=== PATIENT | male | born 1950 | race African-American/Black ===

== ENCOUNTER 2017-11-06 02:04 | Inpatient (IN) ==
[2017-11-06] MEDS ORDERED: SODIUM CHLORIDE 0.9% 1,000 ML IV STA (03:38)
[2017-11-06 04:29] LABS: Basophils % 0.2 % (0.0-0.8); Eosinophils # 0.5 10*3/uL (0.0-0.87); Eosinophils % 10.4 % (0.00-10.9); Hematocrit 32.7 VOL% (42.0-52.0); Hemoglobin 10.4 GM/DL (14.0-18.0); Lymphocytes # 1.6 10*3/uL (1.4-4.0); Lymphocytes % 34.6 % (21.2-54.2); Mean Corpuscular HGB Conc 31.8 GM/DL (32-36); Mean Corpuscular Hemoglobin 26 PG (27-34); Mean Corpuscular Volume 81.5 FL (87-102); Mean Platelet Volume 11.3 FL (9.6-12.0); Monocytes # 0.7 10*3/uL (0.11-0.8); Neutrophils # 1.8 10*3/uL (1.4-7.4); Neutrophils % 39.8 % (38.7-73.9); Platelet Count 154 T/CUMM (130-400); Red Blood Count 4.01 MC/CUMM (3.8-5.5); Red Cell Distribution Width 12.5 % (9.3-17.3); White Blood Count 4.6 T/CUMM (4-12)
[2017-11-06 04:49] LABS: Albumin 3.5 G/DL (3.4-5.0); Bilirubin,Total 1.8 MG/DL (0.2-1.0); Calcium 10.9 MG/DL (8.5-10.1); Osmolality,Calculated 282.1 MOS/KG (273-304); Potassium 3.6 MMOL/L (3.5-5.1); Total Protein 6.7 G/DL (6.4-8.3)
[2017-11-06] MEDS ORDERED: MAGNESIUM HYDROXIDE SUSP 30 ML UDCUP PO PRN (05:09)
[2017-11-06] MEDS ORDERED: chlorproMAZINE INJ 50 MG in SODIUM CHLORIDE 0.9% 100 ML IV PRN (05:09)
[2017-11-06] MEDS ORDERED: chlorproMAZINE 25 MG TABLET PO PRN (05:09)
[2017-11-06] MEDS ORDERED: PROMETHAZINE INJ 25 MG in SODIUM CHLORIDE 0.9% 50 ML IV PRN (05:09)
[2017-11-06] MEDS ORDERED: chlorproMAZINE INJ 25 MG in SODIUM CHLORIDE 0.9% 100 ML IV PRN (05:09)
[2017-11-06] MEDS ORDERED: ALUMINUM/MAGNES/SIMETH MAX STR 30 ML UDCUP PO PRN (05:09)
[2017-11-06] MEDS ORDERED: TEMAZEPAM 7.5 MG CAPSULE PO PRN (05:09)
[2017-11-06] MEDS ORDERED: ALPRAZolam 0.25 MG TABLET PO PRN (05:09)
[2017-11-06] MEDS ORDERED: MYLANTA/LIDO VISC 2:1 300 ML BOTTLE SWISH/SPIT PRN (05:09)
[2017-11-06] MEDS ORDERED: diphenhydrAMINE CAP 25 MG CAPSULE PO PRN (05:09)
[2017-11-06] MEDS ORDERED: MYLANTA/LIDO VISC 2:1 300 ML BOTTLE SWISH/SWAL PRN (05:09)
[2017-11-06] MEDS ORDERED: BENZTROPINE 2 MG/2 ML AMP IV PRN (05:09)
[2017-11-06] MEDS ORDERED: LACTULOSE 20 GM/30 ML UDCUP PO PRN (05:09)
[2017-11-06] MEDS ORDERED: ACETAMINOPHEN 325 MG TABLET PO PRN (05:09)
[2017-11-06] MEDS ORDERED: traMADol 50 MG TABLET PO PRN ×2 (05:09→08:09)
[2017-11-06] MEDS ORDERED: LOPERAMIDE 2 MG CAPSULE PO PRN ×2 (05:09)
[2017-11-06] MEDS ORDERED: guaiFENesin 200 MG/10 ML UDCUP PO PRN (05:09)
[2017-11-06] MEDS ORDERED: DEXTROSE 5% NACL 0.9% 1,000 ML IV SCH (05:30)
[2017-11-06] MEDS ORDERED: LORazepam 1 MG TABLET PO PRN (08:09)
[2017-11-06] MEDS ORDERED: PALONOSETRON 0.25 MG/5 ML VIAL IV ONE (08:30)
[2017-11-06] MEDS ORDERED: DEXAMETHASONE 10 MG/1 ML VIAL IV ONE (08:30)
[2017-11-06] MEDS ORDERED: FLUOROURACIL 800 MG in SYRINGE 1 EACH IV ONE (09:30)
[2017-11-06] MEDS ORDERED: OXALIPLATIN 170 MG in DEXTROSE 5% 250 ML IV ONE (09:30)
[2017-11-06] MEDS ORDERED: LEUCOVORIN INJ 700 MG, LEUCOVORIN INJ 100 MG in DEXTROSE 5% 250 ML IV ONE (09:30)
[2017-11-06] MEDS: LOSARTAN/HCTZ 50-12.5 MG TABLET PO SCH (10:14)
[2017-11-06] MEDS: SODIUM CHLORIDE 0.9% IV SCH (16:19)
[2017-11-06] MEDS: FLUOROURACIL IV SCH (16:19)
[2017-11-07] MEDS: ONDANSETRON 4 MG/2 ML VIAL IV PRN ×2 (01:19→14:47)
[2017-11-07] MEDS: LOSARTAN/HCTZ 50-12.5 MG TABLET PO SCH (10:15)
[2017-11-07] MEDS: FLUOROURACIL IV SCH (14:48)
[2017-11-07] MEDS: SODIUM CHLORIDE 0.9% IV SCH (14:48)
[2017-11-08 06:39] LABS: Basophils % 0.2 % (0.0-0.8); Eosinophils # 0.2 10*3/uL (0.0-0.87); Eosinophils % 4.8 % (0.00-10.9); Hematocrit 28.6 VOL% (42.0-52.0); Hemoglobin 9.5 GM/DL (14.0-18.0); Immature Granulocytes % 0.5 %; Immature Granulocytes Absolute 0.02 #; Lymphocytes # 1.1 10*3/uL (1.4-4.0); Mean Corpuscular HGB Conc 33.2 GM/DL (32-36); Mean Corpuscular Hemoglobin 27 PG (27-34); Mean Corpuscular Volume 79.7 FL (87-102); Mean Platelet Volume 12.1 FL (9.6-12.0); Monocytes # 0.5 10*3/uL (0.11-0.8); Monocytes % 12.7 % (1.7-12.7); Neutrophils # 2.3 10*3/uL (1.4-7.4); Neutrophils % 54.8 % (38.7-73.9); Platelet Count 135 T/CUMM (130-400); Red Blood Count 3.59 MC/CUMM (3.8-5.5); Red Cell Distribution Width 12.7 % (9.3-17.3); White Blood Count 4.2 T/CUMM (4-12)
[2017-11-08] MEDS: LOSARTAN/HCTZ 50-12.5 MG TABLET PO SCH (10:15)
[2017-11-08 14:05] VITALS: BP 113/72
[2017-11-09] MEDS ORDERED: PEGFILGRASTIM 6 MG/0.6 ML SYRINGE SUBCUT ONE (08:03)
[2017-11-10] MEDS ORDERED: BEVACIZUMAB IV ONE (09:00)
[2017-11-10] MEDS ORDERED: SODIUM CHLORIDE 0.9% IV ONE (09:00)
== END 2017-11-08 13:15 | disposition home or self-care (01) | DRG 847 ==
LOC: N.ED 02:04 → N.EDINP 05:09 → N.4E 05:52
PROVIDERS: ADMIT Specialist; ATTEND Specialist

== ENCOUNTER 2017-11-20 07:00 | Inpatient (IN) ==
[2017-11-20 10:53] LABS: Eosinophils # 0.3 10*3/uL (0.0-0.87); Eosinophils % 5.5 % (0.00-10.9); Hematocrit 33.6 VOL% (42.0-52.0); Hemoglobin 10.6 GM/DL (14.0-18.0); Immature Granulocytes % 0.4 %; Immature Granulocytes Absolute 0.02 #; Lymphocytes # 1.5 10*3/uL (1.4-4.0); Lymphocytes % 31.2 % (21.2-54.2); Mean Corpuscular HGB Conc 31.5 GM/DL (32-36); Mean Corpuscular Hemoglobin 26 PG (27-34); Mean Corpuscular Volume 82.2 FL (87-102); Mean Platelet Volume 10.9 FL (9.6-12.0); Monocytes # 0.8 10*3/uL (0.11-0.8); Neutrophils # 2.3 10*3/uL (1.4-7.4); Neutrophils % 45.9 % (38.7-73.9); Platelet Count 144 T/CUMM (130-400); Red Blood Count 4.09 MC/CUMM (3.8-5.5); Red Cell Distribution Width 13.6 % (9.3-17.3); White Blood Count 4.9 T/CUMM (4-12)
[2017-11-20] MEDS ORDERED: FLUOROURACIL 800 MG in SYRINGE 1 EACH IV ONE (11:00)
[2017-11-20] MEDS ORDERED: LEUCOVORIN INJ 800 MG in DEXTROSE 5% 250 ML IV ONE (11:00)
[2017-11-20] MEDS ORDERED: DEXAMETHASONE 10 MG/1 ML VIAL IV SCH (11:00)
[2017-11-20] MEDS ORDERED: OXALIPLATIN 170 MG in DEXTROSE 5% 250 ML IV ONE (11:00)
[2017-11-20] MEDS ORDERED: PALONOSETRON 0.25 MG/5 ML VIAL IV SCH (11:00)
[2017-11-20 11:13] LABS: Eosinophils 4 % (0-10); Hypochromasia 1+; Lymphocytes 28 % (20-55); Microcytosis 1+; Segmented Neutrophils 56 % (50-85); Total Cells Counted 100
[2017-11-20 11:14] LABS: Acanthocytes Few; Ovalocytes Slight; Platelet Estimate Adequate
[2017-11-20 11:54] LABS: Albumin 3.1 G/DL (3.4-5.0); Bilirubin,Total 0.8 MG/DL (0.2-1.0); Calcium 10.2 MG/DL (8.5-10.1); Osmolality,Calculated 277.5 MOS/KG (273-304); Potassium 3.8 MMOL/L (3.5-5.1); Total Protein 7.3 G/DL (6.4-8.3)
[2017-11-20] MEDS ORDERED: LEUCOVORIN INJ 700 MG, LEUCOVORIN INJ 100 MG in DEXTROSE 5% 250 ML IV ONE (12:00)
[2017-11-20] MEDS ORDERED: PALONOSETRON 0.25 MG/5 ML VIAL IV ONE (12:00)
[2017-11-20] MEDS ORDERED: DEXAMETHASONE 10 MG/1 ML VIAL IV ONE (12:00)
[2017-11-20] MEDS ORDERED: NAPROXEN 250 MG TABLET PO PRN (14:52)
[2017-11-20] MEDS ORDERED: PROMETHAZINE 25 MG TABLET PO PRN (14:52)
[2017-11-20] MEDS ORDERED: traMADol 50 MG TABLET PO PRN (14:52)
[2017-11-20] MEDS ORDERED: LORazepam 1 MG TABLET PO PRN (14:52)
[2017-11-20] MEDS ORDERED: guaiFENesin 200 MG/10 ML UDCUP PO PRN (14:53)
[2017-11-20] MEDS ORDERED: LOPERAMIDE 2 MG CAPSULE PO PRN ×2 (14:53)
[2017-11-20] MEDS ORDERED: diphenhydrAMINE CAP 25 MG CAPSULE PO PRN (14:53)
[2017-11-20] MEDS ORDERED: ONDANSETRON 4 MG/2 ML VIAL IV PRN (14:53)
[2017-11-20] MEDS ORDERED: LACTULOSE 20 GM/30 ML UDCUP PO PRN (14:53)
[2017-11-20] MEDS ORDERED: PROMETHAZINE INJ 25 MG in SODIUM CHLORIDE 0.9% 50 ML IV PRN (14:53)
[2017-11-20] MEDS ORDERED: MYLANTA/LIDO VISC 2:1 300 ML BOTTLE SWISH/SWAL PRN (14:53)
[2017-11-20] MEDS ORDERED: ALPRAZolam 0.25 MG TABLET PO PRN (14:53)
[2017-11-20] MEDS ORDERED: chlorproMAZINE 25 MG TABLET PO PRN (14:53)
[2017-11-20] MEDS ORDERED: chlorproMAZINE INJ 50 MG in SODIUM CHLORIDE 0.9% 100 ML IV PRN (14:53)
[2017-11-20] MEDS ORDERED: ALUMINUM/MAGNES/SIMETH MAX STR 30 ML UDCUP PO PRN (14:53)
[2017-11-20] MEDS ORDERED: MYLANTA/LIDO VISC 2:1 300 ML BOTTLE SWISH/SPIT PRN (14:53)
[2017-11-20] MEDS ORDERED: BENZTROPINE 2 MG/2 ML AMP IV PRN (14:53)
[2017-11-20] MEDS ORDERED: MAGNESIUM HYDROXIDE SUSP 30 ML UDCUP PO PRN (14:53)
[2017-11-20] MEDS ORDERED: chlorproMAZINE INJ 25 MG in SODIUM CHLORIDE 0.9% 100 ML IV PRN (14:53)
[2017-11-20] MEDS ORDERED: ACETAMINOPHEN 325 MG TABLET PO PRN (14:53)
[2017-11-20] MEDS ORDERED: TEMAZEPAM 7.5 MG CAPSULE PO PRN (14:53)
[2017-11-20] MEDS: FLUOROURACIL IV SCH (15:28)
[2017-11-20] MEDS: SODIUM CHLORIDE 0.9% IV SCH (15:28)
[2017-11-20 16:43] LABS: Apearance,Urine CLEAR (Clear); Bilirubin,Urine Negative (Negative); Blood, Urine Negative (Negative); Glucose,Urine (UA) Negative (Negative); Ketones,Urine Negative (Negative); Mucus,Urine Occasional /LPF (Occasional); Nitrite,Urine Negative (Negative); Protein,Urine Negative; RBC,Urine <1 /HPF (0-4); Renal Epithelial Cells,Urine Occasional /HPF (<1); Squamous Epithelial Cell,Urine Occasional /HPF (0-10); Urine Color Straw (Yellow); Urine Specific Gravity 1.006 (1.001-1.035); Urine Urobilinogen < 2.0 EU/DL (0.2-1.0); WBC,Urine <1 /HPF (0-6)
[2017-11-21] MEDS: LOSARTAN/HCTZ 50-12.5 MG TABLET PO SCH (09:38)
[2017-11-21] MEDS: SODIUM CHLORIDE 0.9% IV SCH (13:43)
[2017-11-21] MEDS: FLUOROURACIL IV SCH (13:43)
[2017-11-22] MEDS: LOSARTAN/HCTZ 50-12.5 MG TABLET PO SCH (08:40)
[2017-11-22] MEDS ORDERED: HEPARIN LOCK FLUSH 500 UNIT/5 ML SYRINGE IV ONE ×2 (12:11→12:21)
[2017-11-22 12:29] VITALS: BP 146/82
== END 2017-11-22 11:42 | disposition home or self-care, planned readmission (81) | DRG 847 ==
LOC: N.4E 09:32
PROVIDERS: ADMIT Specialist; ATTEND Specialist

== ENCOUNTER 2017-11-23 13:04 | Observation (INO) ==
[2017-11-23] MEDS ORDERED: NITROGLYCERIN 2% OINT 1 INCH/GM PACK TOP STA (13:17)
[2017-11-23] MEDS ORDERED: ONDANSETRON 4 MG/2 ML VIAL IV STA (13:17)
[2017-11-23] MEDS ORDERED: ASPIRIN 325 MG TABLET PO STA (13:17)
[2017-11-23] MEDS ORDERED: SODIUM CHLORIDE 0.9% 500 ML IV STA (13:17)
[2017-11-23] MEDS ORDERED: MORPHINE 2 MG/1 ML SYRINGE IV STA (13:17)
[2017-11-23] MEDS ORDERED: ONDANSETRON 4 MG/2 ML VIAL ONE (13:25)
[2017-11-23] MEDS ORDERED: MORPHINE 2 MG/1 ML SYRINGE ONE (13:25)
[2017-11-23] MEDS ORDERED: NITROGLYCERIN 2% OINT 1 INCH/GM PACK TOP ONE (13:25)
[2017-11-23] MEDS ORDERED: ASPIRIN 325 MG TABLET ONE (13:25)
[2017-11-23 13:35] LABS: Eosinophils # 0.1 10*3/uL (0.0-0.87); Eosinophils % 3.1 % (0.00-10.9); Hematocrit 35.1 VOL% (42.0-52.0); Hemoglobin 11.7 GM/DL (14.0-18.0); Immature Granulocytes % 0.4 %; Immature Granulocytes Absolute 0.01 #; Lymphocytes # 0.8 10*3/uL (1.4-4.0); Lymphocytes % 29.9 % (21.2-54.2); Mean Corpuscular HGB Conc 33.3 GM/DL (32-36); Mean Corpuscular Hemoglobin 27 PG (27-34); Mean Corpuscular Volume 79.8 FL (87-102); Mean Platelet Volume 11.1 FL (9.6-12.0); Monocytes # 0.2 10*3/uL (0.11-0.8); Monocytes % 9.2 % (1.7-12.7); Neutrophils # 1.5 10*3/uL (1.4-7.4); Neutrophils % 57.4 % (38.7-73.9); Platelet Count 183 T/CUMM (130-400); Red Cell Distribution Width 13.4 % (9.3-17.3); White Blood Count 2.6 T/CUMM (4-12)
[2017-11-23 14:05] LABS: Albumin 3.4 G/DL (3.4-5.0); Calcium 9.7 MG/DL (8.5-10.1); Osmolality,Calculated 279.4 MOS/KG (273-304); Potassium 3.6 MMOL/L (3.5-5.1); Total Protein 7.3 G/DL (6.4-8.3)
[2017-11-23 14:07] LABS: PT Patient Result 10.6 SECS
[2017-11-23 15:44] LABS: Apearance,Urine CLEAR (Clear); Bilirubin,Urine Negative (Negative); Blood, Urine Large mg/dL (Negative); Glucose,Urine (UA) Negative (Negative); Ketones,Urine Negative (Negative); Mucus,Urine Few /LPF (Occasional); Nitrite,Urine Negative (Negative); Protein,Urine Negative; RBC,Urine 3 /HPF (0-4); Squamous Epithelial Cell,Urine Occasional /HPF (0-10); Urine Color Yellow (Yellow); Urine Specific Gravity 1.015 (1.001-1.035); WBC,Urine 3 /HPF (0-6)
[2017-11-23] MEDS ORDERED: MYLANTA/LIDO VISC 2:1 300 ML BOTTLE SWISH/SWAL PRN (17:22)
[2017-11-23] MEDS ORDERED: PROMETHAZINE INJ 25 MG in SODIUM CHLORIDE 0.9% 50 ML IV PRN (17:22)
[2017-11-23] MEDS ORDERED: chlorproMAZINE 25 MG TABLET PO PRN (17:22)
[2017-11-23] MEDS ORDERED: ALUMINUM/MAGNES/SIMETH MAX STR 30 ML UDCUP PO PRN (17:22)
[2017-11-23] MEDS ORDERED: ACETAMINOPHEN 325 MG TABLET PO PRN (17:22)
[2017-11-23] MEDS ORDERED: traMADol 50 MG TABLET PO PRN (17:22)
[2017-11-23] MEDS ORDERED: diphenhydrAMINE CAP 25 MG CAPSULE PO PRN (17:22)
[2017-11-23] MEDS ORDERED: chlorproMAZINE INJ 25 MG in SODIUM CHLORIDE 0.9% 100 ML IV PRN (17:22)
[2017-11-23] MEDS ORDERED: LACTULOSE 20 GM/30 ML UDCUP PO PRN (17:22)
[2017-11-23] MEDS ORDERED: ALPRAZolam 0.25 MG TABLET PO PRN (17:22)
[2017-11-23] MEDS ORDERED: MAGNESIUM HYDROXIDE SUSP 30 ML UDCUP PO PRN (17:22)
[2017-11-23] MEDS ORDERED: BENZTROPINE 2 MG/2 ML AMP IV PRN (17:22)
[2017-11-23] MEDS ORDERED: guaiFENesin 200 MG/10 ML UDCUP PO PRN (17:22)
[2017-11-23] MEDS ORDERED: LOPERAMIDE 2 MG CAPSULE PO PRN ×2 (17:22)
[2017-11-23] MEDS ORDERED: TEMAZEPAM 7.5 MG CAPSULE PO PRN (17:22)
[2017-11-23] MEDS ORDERED: MYLANTA/LIDO VISC 2:1 300 ML BOTTLE SWISH/SPIT PRN (17:22)
[2017-11-23] MEDS ORDERED: ONDANSETRON 4 MG/2 ML VIAL IV PRN (17:22)
[2017-11-23] MEDS ORDERED: chlorproMAZINE INJ 50 MG in SODIUM CHLORIDE 0.9% 100 ML IV PRN (17:22)
[2017-11-23] MEDS: SODIUM CHLORIDE 0.9% 1,000 ML IV SCH (18:12)
[2017-11-23 18:31] LABS: Eosinophils # 0.1 10*3/uL (0.0-0.87); Hematocrit 31.6 VOL% (42.0-52.0); Hemoglobin 10.3 GM/DL (14.0-18.0); Immature Granulocytes % 0.4 %; Immature Granulocytes Absolute 0.01 #; Lymphocytes # 0.9 10*3/uL (1.4-4.0); Lymphocytes % 35.7 % (21.2-54.2); Mean Corpuscular HGB Conc 32.6 GM/DL (32-36); Mean Corpuscular Hemoglobin 26 PG (27-34); Mean Corpuscular Volume 79.6 FL (87-102); Mean Platelet Volume 11.2 FL (9.6-12.0); Monocytes # 0.2 10*3/uL (0.11-0.8); Neutrophils # 1.4 10*3/uL (1.4-7.4); Neutrophils % 52.9 % (38.7-73.9); Platelet Count 162 T/CUMM (130-400); Red Blood Count 3.97 MC/CUMM (3.8-5.5); Red Cell Distribution Width 13.2 % (9.3-17.3); White Blood Count 2.6 T/CUMM (4-12)
[2017-11-23 18:52] LABS: Uric Acid 9.8 MG/DL (3.5-7.2)
[2017-11-23 19:13] LABS: Apearance,Urine CLEAR (Clear); Bilirubin,Urine Negative (Negative); Blood, Urine Small mg/dL (Negative); Glucose,Urine (UA) Negative (Negative); Hyaline Casts,Urine 6 /LPF (0-3); Ketones,Urine Negative (Negative); Mucus,Urine Few /LPF (Occasional); Nitrite,Urine Negative (Negative); Protein,Urine Negative; RBC,Urine 2 /HPF (0-4); Squamous Epithelial Cell,Urine Occasional /HPF (0-10); Urine Color Yellow (Yellow); Urine Specific Gravity 1.015 (1.001-1.035); WBC,Urine 2 /HPF (0-6)
[2017-11-23] MEDS ORDERED: ENOXAPARIN 40 MG/0.4 ML SYRINGE SUBCUT SCH (21:00)
[2017-11-23 21:20] LABS: Bilirubin,Total 3.2 MG/DL (0.2-1.0); Calcium 9.2 MG/DL (8.5-10.1); Osmolality,Calculated 283.1 MOS/KG (273-304); Potassium 3.8 MMOL/L (3.5-5.1); Total Protein 6.5 G/DL (6.4-8.3)
[2017-11-24 05:24] LABS: Basophils % 0.6 % (0.0-0.8); Eosinophils # 0.1 10*3/uL (0.0-0.87); Eosinophils % 5.4 % (0.00-10.9); Hematocrit 29.7 VOL% (42.0-52.0); Hemoglobin 9.8 GM/DL (14.0-18.0); Immature Granulocytes % 0.6 %; Immature Granulocytes Absolute 0.01 #; Lymphocytes # 0.7 10*3/uL (1.4-4.0); Lymphocytes % 41.9 % (21.2-54.2); Mean Corpuscular Hemoglobin 26 PG (27-34); Mean Corpuscular Volume 78.8 FL (87-102); Mean Platelet Volume 11.8 FL (9.6-12.0); Monocytes # 0.2 10*3/uL (0.11-0.8); Neutrophils # 0.7 10*3/uL (1.4-7.4); Neutrophils % 39.5 % (38.7-73.9); Platelet Count 165 T/CUMM (130-400); Red Blood Count 3.77 MC/CUMM (3.8-5.5); Red Cell Distribution Width 13.2 % (9.3-17.3); White Blood Count 1.7 T/CUMM (4-12)
[2017-11-24 05:54] LABS: Osmolality,Calculated 281.1 MOS/KG (273-304); Potassium 3.8 MMOL/L (3.5-5.1)
[2017-11-24 06:15] LABS: Eosinophils 3 % (0-10); Lymphocytes 41 % (20-55); Microcytosis 1+; Platelet Estimate Normal; Segmented Neutrophils 53 % (50-85); Total Cells Counted 100
[2017-11-24] MEDS: SODIUM CHLORIDE 0.9% 1,000 ML IV SCH (07:14)
[2017-11-24] MEDS ORDERED: PANTOPRAZOLE 40 MG VIAL IV SCH (09:00)
[2017-11-24] MEDS ORDERED: LOSARTAN/HCTZ 50-12.5 MG TABLET PO SCH (09:00)
[2017-11-24] MEDS ORDERED: PEGFILGRASTIM 6 MG/0.6 ML SYRINGE SUBCUT ONE (11:03)
[2017-11-24] MEDS ORDERED: MAGNESIUM OXIDE 400 MG TABLET PO SCH (11:30)
[2017-11-24] MEDS ORDERED: HEPARIN LOCK FLUSH 500 UNIT/5 ML SYRINGE IV ONE (14:19)
[2017-11-24 16:03] VITALS: BP 142/91
== END 2017-11-24 14:45 | disposition home or self-care (01) ==
LOC: EDUNIT# → EDBD → N.EDINP 13:04 → N.ED 13:04 → N.4E 17:25
PROVIDERS: ADMIT Specialist; ATTEND Specialist

== ENCOUNTER 2017-12-03 07:00 | Inpatient (IN) ==
[2017-12-03] MEDS ORDERED: TEMAZEPAM 7.5 MG CAPSULE PO PRN (10:42)
[2017-12-03] MEDS ORDERED: ALPRAZolam 0.25 MG TABLET PO PRN (10:42)
[2017-12-03] MEDS ORDERED: LOPERAMIDE 2 MG CAPSULE PO PRN ×2 (10:42)
[2017-12-03] MEDS ORDERED: MAGNESIUM HYDROXIDE SUSP 30 ML UDCUP PO PRN (10:42)
[2017-12-03] MEDS ORDERED: MYLANTA/LIDO VISC 2:1 300 ML BOTTLE SWISH/SWAL PRN (10:42)
[2017-12-03] MEDS ORDERED: BENZTROPINE 2 MG/2 ML AMP IV PRN (10:42)
[2017-12-03] MEDS ORDERED: ALUMINUM/MAGNES/SIMETH MAX STR 30 ML UDCUP PO PRN (10:42)
[2017-12-03] MEDS ORDERED: ACETAMINOPHEN 325 MG TABLET PO PRN (10:42)
[2017-12-03] MEDS ORDERED: chlorproMAZINE INJ 50 MG in SODIUM CHLORIDE 0.9% 100 ML IV PRN (10:42)
[2017-12-03] MEDS ORDERED: LACTULOSE 20 GM/30 ML UDCUP PO PRN (10:42)
[2017-12-03] MEDS ORDERED: chlorproMAZINE INJ 25 MG in SODIUM CHLORIDE 0.9% 100 ML IV PRN (10:42)
[2017-12-03] MEDS ORDERED: PROMETHAZINE INJ 25 MG in SODIUM CHLORIDE 0.9% 50 ML IV PRN (10:42)
[2017-12-03] MEDS ORDERED: traMADol 50 MG TABLET PO PRN (10:42)
[2017-12-03] MEDS ORDERED: guaiFENesin 200 MG/10 ML UDCUP PO PRN (10:42)
[2017-12-03] MEDS ORDERED: diphenhydrAMINE CAP 25 MG CAPSULE PO PRN (10:42)
[2017-12-03] MEDS ORDERED: chlorproMAZINE 25 MG TABLET PO PRN (10:42)
[2017-12-03] MEDS ORDERED: MYLANTA/LIDO VISC 2:1 300 ML BOTTLE SWISH/SPIT PRN (10:42)
[2017-12-03 11:21] LABS: Basophils % 0.1 % (0.0-0.8); Eosinophils # 0.1 10*3/uL (0.0-0.87); Eosinophils % 1.6 % (0.00-10.9); Hematocrit 31.4 VOL% (42.0-52.0); Immature Granulocytes % 0.8 %; Immature Granulocytes Absolute 0.07 #; Lymphocytes # 1.2 10*3/uL (1.4-4.0); Lymphocytes % 13.9 % (21.2-54.2); Mean Corpuscular HGB Conc 31.8 GM/DL (32-36); Mean Corpuscular Hemoglobin 27 PG (27-34); Mean Corpuscular Volume 83.1 FL (87-102); Mean Platelet Volume 10.8 FL (9.6-12.0); Monocytes % 11.1 % (1.7-12.7); Neutrophils # 6.3 10*3/uL (1.4-7.4); Neutrophils % 72.5 % (38.7-73.9); Platelet Count 166 T/CUMM (130-400); Red Blood Count 3.78 MC/CUMM (3.8-5.5); Red Cell Distribution Width 14.8 % (9.3-17.3); White Blood Count 8.7 T/CUMM (4-12)
[2017-12-03 11:58] LABS: Bilirubin,Total 0.6 MG/DL (0.2-1.0); Calcium 8.9 MG/DL (8.5-10.1); Osmolality,Calculated 272.8 MOS/KG (273-304); Potassium 3.7 MMOL/L (3.5-5.1); Total Protein 6.7 G/DL (6.4-8.3); Uric Acid 6.4 MG/DL (3.5-7.2)
[2017-12-03] MEDS ORDERED: PALONOSETRON 0.25 MG/5 ML VIAL IV ONE (12:00)
[2017-12-03] MEDS ORDERED: DEXAMETHASONE INJ 10 MG in SODIUM CHLORIDE 0.9% 50 ML IV ONE (12:00)
[2017-12-03 12:09] LABS: Apearance,Urine CLEAR (Clear); Bacteria,Urine Occasional /HPF (Few); Bilirubin,Urine Negative (Negative); Blood, Urine Negative (Negative); Glucose,Urine (UA) Negative (Negative); Ketones,Urine Negative (Negative); Mucus,Urine Occasional /LPF (Occasional); Nitrite,Urine Negative (Negative); Protein,Urine Negative; RBC,Urine 1 /HPF (0-4); Squamous Epithelial Cell,Urine Occasional /HPF (0-10); Urine Color Straw (Yellow); Urine Specific Gravity 1.006 (1.001-1.035); Urine Urobilinogen < 2.0 EU/DL (0.2-1.0); WBC,Urine <1 /HPF (0-6)
[2017-12-03] MEDS ORDERED: LEUCOVORIN INJ 800 MG in DEXTROSE 5% 250 ML IV ONE (12:30)
[2017-12-03] MEDS ORDERED: OXALIPLATIN 170 MG in DEXTROSE 5% 250 ML IV ONE (12:30)
[2017-12-03] MEDS ORDERED: FLUOROURACIL 800 MG in SYRINGE 1 EACH IV ONE (12:30)
[2017-12-03] MEDS ORDERED: LEUCOVORIN INJ 700 MG, LEUCOVORIN INJ 100 MG in DEXTROSE 5% 250 ML IV ONE (12:30)
[2017-12-03] MEDS: SODIUM CHLORIDE 0.9% IV SCH (16:51)
[2017-12-03] MEDS: FLUOROURACIL IV SCH (16:51)
[2017-12-03] MEDS ORDERED: PROMETHAZINE 25 MG TABLET PO PRN (18:42)
[2017-12-04] MEDS: ONDANSETRON 4 MG/2 ML VIAL IV PRN (08:05)
[2017-12-04] MEDS: DEXAMETHASONE 0.5 MG TABLET PO SCH (09:05)
[2017-12-04] MEDS: LOSARTAN/HCTZ 50-12.5 MG TABLET PO SCH (09:05)
[2017-12-04] MEDS: MAGNESIUM OXIDE 400 MG TABLET PO SCH (09:05)
[2017-12-04] MEDS: SODIUM CHLORIDE 0.9% IV SCH (15:51)
[2017-12-04] MEDS: FLUOROURACIL IV SCH (15:51)
[2017-12-05] MEDS: ONDANSETRON 4 MG/2 ML VIAL IV PRN (06:18)
[2017-12-05] MEDS: DEXAMETHASONE 0.5 MG TABLET PO SCH (08:58)
[2017-12-05] MEDS: LOSARTAN/HCTZ 50-12.5 MG TABLET PO SCH (08:59)
[2017-12-05] MEDS: MAGNESIUM OXIDE 400 MG TABLET PO SCH (08:59)
[2017-12-05 11:43] VITALS: BP 133/74
[2017-12-05] MEDS ORDERED: HEPARIN LOCK FLUSH 500 UNIT/5 ML SYRINGE IV ONE (15:07)
== END 2017-12-05 15:45 | disposition home or self-care, planned readmission (81) | DRG 847 ==
LOC: N.4E 09:38
PROVIDERS: ADMIT Specialist; ATTEND Specialist

== ENCOUNTER 2017-12-17 07:00 | Inpatient (IN) ==
[2017-12-17] MEDS ORDERED: MAGNESIUM HYDROXIDE SUSP 30 ML UDCUP PO PRN (08:43)
[2017-12-17] MEDS ORDERED: MYLANTA/LIDO VISC 2:1 300 ML BOTTLE SWISH/SPIT PRN (08:43)
[2017-12-17] MEDS ORDERED: TEMAZEPAM 7.5 MG CAPSULE PO PRN (08:43)
[2017-12-17] MEDS ORDERED: PROMETHAZINE INJ 25 MG in SODIUM CHLORIDE 0.9% 50 ML IV PRN (08:43)
[2017-12-17] MEDS ORDERED: ALUMINUM/MAGNES/SIMETH MAX STR 30 ML UDCUP PO PRN (08:43)
[2017-12-17] MEDS ORDERED: LACTULOSE 20 GM/30 ML UDCUP PO PRN (08:43)
[2017-12-17] MEDS ORDERED: ACETAMINOPHEN 325 MG TABLET PO PRN (08:43)
[2017-12-17] MEDS ORDERED: guaiFENesin 200 MG/10 ML UDCUP PO PRN (08:43)
[2017-12-17] MEDS ORDERED: diphenhydrAMINE CAP 25 MG CAPSULE PO PRN (08:43)
[2017-12-17] MEDS ORDERED: MYLANTA/LIDO VISC 2:1 300 ML BOTTLE SWISH/SWAL PRN (08:43)
[2017-12-17] MEDS ORDERED: traMADol 50 MG TABLET PO PRN (08:43)
[2017-12-17] MEDS ORDERED: ONDANSETRON 4 MG/2 ML VIAL IV PRN (08:43)
[2017-12-17] MEDS ORDERED: BENZTROPINE 2 MG/2 ML AMP IV PRN (08:43)
[2017-12-17] MEDS ORDERED: chlorproMAZINE INJ 25 MG in SODIUM CHLORIDE 0.9% 100 ML IV PRN (08:43)
[2017-12-17] MEDS ORDERED: ALPRAZolam 0.25 MG TABLET PO PRN (08:43)
[2017-12-17] MEDS ORDERED: chlorproMAZINE 25 MG TABLET PO PRN (08:43)
[2017-12-17] MEDS ORDERED: chlorproMAZINE INJ 50 MG in SODIUM CHLORIDE 0.9% 100 ML IV PRN (08:43)
[2017-12-17] MEDS ORDERED: LOPERAMIDE 2 MG CAPSULE PO PRN ×2 (08:43)
[2017-12-17 09:04] LABS: Basophils % 0.1 % (0.0-0.8); Eosinophils # 0.3 10*3/uL (0.0-0.87); Eosinophils % 3.1 % (0.00-10.9); Hematocrit 35.5 VOL% (42.0-52.0); Hemoglobin 11.2 GM/DL (14.0-18.0); Immature Granulocytes % 0.6 %; Immature Granulocytes Absolute 0.05 #; Lymphocytes # 1.6 10*3/uL (1.4-4.0); Lymphocytes % 18.9 % (21.2-54.2); Mean Corpuscular HGB Conc 31.5 GM/DL (32-36); Mean Corpuscular Hemoglobin 26 PG (27-34); Mean Corpuscular Volume 83.3 FL (87-102); Monocytes # 0.9 10*3/uL (0.11-0.8); Monocytes % 10.5 % (1.7-12.7); Neutrophils # 5.5 10*3/uL (1.4-7.4); Neutrophils % 66.8 % (38.7-73.9); Platelet Count 138 T/CUMM (130-400); Red Blood Count 4.26 MC/CUMM (3.8-5.5); Red Cell Distribution Width 15.9 % (9.3-17.3); White Blood Count 8.3 T/CUMM (4-12)
[2017-12-17 09:47] LABS: Albumin 3.2 G/DL (3.4-5.0); Bilirubin,Total 0.7 MG/DL (0.2-1.0); Calcium 8.9 MG/DL (8.5-10.1); Osmolality,Calculated 275.8 MOS/KG (273-304); Potassium 3.8 MMOL/L (3.5-5.1); Total Protein 6.9 G/DL (6.4-8.3); Uric Acid 6.6 MG/DL (3.5-7.2)
[2017-12-17] MEDS ORDERED: PALONOSETRON 0.25 MG/5 ML VIAL IV ONE (10:00)
[2017-12-17] MEDS ORDERED: DEXAMETHASONE 10 MG/1 ML VIAL IV ONE (10:00)
[2017-12-17] MEDS ORDERED: LEUCOVORIN INJ 700 MG, LEUCOVORIN INJ 100 MG in DEXTROSE 5% 250 ML IV ONE (10:30)
[2017-12-17] MEDS ORDERED: FLUOROURACIL 800 MG in SYRINGE 1 EACH IV ONE (10:30)
[2017-12-17] MEDS ORDERED: OXALIPLATIN 170 MG in DEXTROSE 5% 250 ML IV ONE (10:30)
[2017-12-17 14:05] LABS: Apearance,Urine CLEAR (Clear); Bilirubin,Urine Negative (Negative); Blood, Urine Negative (Negative); Glucose,Urine (UA) Negative (Negative); Ketones,Urine Negative (Negative); Nitrite,Urine Negative (Negative); Protein,Urine Negative; RBC,Urine <1 /HPF (0-4); Squamous Epithelial Cell,Urine Occasional /HPF (0-10); Urine Color Yellow (Yellow); Urine Urobilinogen < 2.0 EU/DL (0.2-1.0); WBC,Urine 1 /HPF (0-6)
[2017-12-17] MEDS: SODIUM CHLORIDE 0.9% IV SCH (16:43)
[2017-12-17] MEDS: FLUOROURACIL IV SCH (16:43)
[2017-12-18] MEDS ORDERED: PROMETHAZINE 25 MG TABLET PO PRN (08:06)
[2017-12-18] MEDS ORDERED: LOSARTAN/HCTZ 50-12.5 MG TABLET PO SCH (09:00)
[2017-12-18] MEDS: DEXAMETHASONE 0.5 MG TABLET PO SCH (09:13)
[2017-12-18] MEDS: SODIUM CHLORIDE 0.9% IV SCH (16:35)
[2017-12-18] MEDS: FLUOROURACIL IV SCH (16:35)
[2017-12-18] MEDS ORDERED: TEMAZEPAM 15 MG CAPSULE PO SCH (21:00)
[2017-12-19] MEDS ORDERED: LOSARTAN/HCTZ 50-12.5 MG TABLET PO SCH (09:00)
[2017-12-19] MEDS: DEXAMETHASONE 0.5 MG TABLET PO SCH (09:20)
[2017-12-19 14:08] VITALS: BP 128/71
[2017-12-19] MEDS ORDERED: HEPARIN LOCK FLUSH 500 UNIT/5 ML SYRINGE IV PRN (14:12)
== END 2017-12-19 15:10 | disposition home or self-care (01) | DRG 847 ==
LOC: N.4E 08:06
PROVIDERS: ADMIT Specialist; ATTEND Specialist

== ENCOUNTER 2017-12-31 07:00 | Inpatient (IN) ==
[2017-12-31] MEDS ORDERED: traMADol 50 MG TABLET PO PRN (11:25)
[2017-12-31] MEDS ORDERED: PROMETHAZINE INJ 25 MG in SODIUM CHLORIDE 0.9% 50 ML IV PRN (11:25)
[2017-12-31] MEDS ORDERED: LACTULOSE 20 GM/30 ML UDCUP PO PRN (11:25)
[2017-12-31] MEDS ORDERED: ALUMINUM/MAGNES/SIMETH MAX STR 30 ML UDCUP PO PRN (11:25)
[2017-12-31] MEDS ORDERED: MYLANTA/LIDO VISC 2:1 300 ML BOTTLE SWISH/SWAL PRN (11:25)
[2017-12-31] MEDS ORDERED: chlorproMAZINE 25 MG TABLET PO PRN (11:25)
[2017-12-31] MEDS ORDERED: chlorproMAZINE INJ 50 MG in SODIUM CHLORIDE 0.9% 100 ML IV PRN (11:25)
[2017-12-31] MEDS ORDERED: LOPERAMIDE 2 MG CAPSULE PO PRN ×2 (11:25)
[2017-12-31] MEDS ORDERED: ONDANSETRON 4 MG/2 ML VIAL IV PRN (11:25)
[2017-12-31] MEDS ORDERED: guaiFENesin 200 MG/10 ML UDCUP PO PRN (11:25)
[2017-12-31] MEDS ORDERED: MAGNESIUM HYDROXIDE SUSP 30 ML UDCUP PO PRN (11:25)
[2017-12-31] MEDS ORDERED: TEMAZEPAM 7.5 MG CAPSULE PO PRN (11:25)
[2017-12-31] MEDS ORDERED: ALPRAZolam 0.25 MG TABLET PO PRN (11:25)
[2017-12-31] MEDS ORDERED: chlorproMAZINE INJ 25 MG in SODIUM CHLORIDE 0.9% 100 ML IV PRN (11:25)
[2017-12-31] MEDS ORDERED: ACETAMINOPHEN 325 MG TABLET PO PRN (11:25)
[2017-12-31] MEDS ORDERED: BENZTROPINE 2 MG/2 ML AMP IV PRN (11:25)
[2017-12-31] MEDS ORDERED: MYLANTA/LIDO VISC 2:1 300 ML BOTTLE SWISH/SPIT PRN (11:25)
[2017-12-31] MEDS ORDERED: diphenhydrAMINE CAP 25 MG CAPSULE PO PRN (11:25)
[2017-12-31 11:52] LABS: Basophils % 0.1 % (0.0-0.8); Eosinophils # 0.2 10*3/uL (0.0-0.87); Eosinophils % 1.8 % (0.00-10.9); Hematocrit 35.2 VOL% (42.0-52.0); Hemoglobin 10.8 GM/DL (14.0-18.0); Immature Granulocytes % 0.9 %; Immature Granulocytes Absolute 0.08 #; Lymphocytes # 1.2 10*3/uL (1.4-4.0); Lymphocytes % 13.8 % (21.2-54.2); Mean Corpuscular HGB Conc 30.7 GM/DL (32-36); Mean Corpuscular Hemoglobin 27 PG (27-34); Mean Corpuscular Volume 86.9 FL (87-102); Mean Platelet Volume 9.5 FL (9.6-12.0); Monocytes # 0.9 10*3/uL (0.11-0.8); Monocytes % 10.6 % (1.7-12.7); Neutrophils # 6.1 10*3/uL (1.4-7.4); Neutrophils % 72.8 % (38.7-73.9); Platelet Count 131 T/CUMM (130-400); Red Blood Count 4.05 MC/CUMM (3.8-5.5); Red Cell Distribution Width 17.1 % (9.3-17.3); White Blood Count 8.4 T/CUMM (4-12)
[2017-12-31] MEDS ORDERED: LEUCOVORIN INJ 800 MG in DEXTROSE 5% 250 ML IV ONE (12:00)
[2017-12-31] MEDS ORDERED: DEXAMETHASONE 10 MG/1 ML VIAL IV SCH (12:00)
[2017-12-31] MEDS ORDERED: OXALIPLATIN 170 MG in DEXTROSE 5% 250 ML IV ONE (12:00)
[2017-12-31] MEDS ORDERED: PALONOSETRON 0.25 MG/5 ML VIAL IV SCH (12:00)
[2017-12-31] MEDS ORDERED: FLUOROURACIL 800 MG in SYRINGE 1 EACH IV ONE (12:00)
[2017-12-31 12:17] LABS: Albumin 2.9 G/DL (3.4-5.0); Bilirubin,Total 0.6 MG/DL (0.2-1.0); Calcium 8.6 MG/DL (8.5-10.1); Total Protein 6.4 G/DL (6.4-8.3)
[2017-12-31 12:18] LABS: Osmolality,Calculated 275.8 MOS/KG (273-304); Uric Acid 6.8 MG/DL (3.5-7.2)
[2017-12-31 15:17] LABS: Apearance,Urine CLEAR (Clear); Bilirubin,Urine Negative (Negative); Blood, Urine Negative (Negative); Glucose,Urine (UA) Negative (Negative); Ketones,Urine Negative (Negative); Nitrite,Urine Negative (Negative); Protein,Urine Negative; RBC,Urine <1 /HPF (0-4); Squamous Epithelial Cell,Urine Occasional /HPF (0-10); Urine Color Yellow (Yellow); Urine Specific Gravity 1.012 (1.001-1.035); Urine Urobilinogen < 2.0 EU/DL (0.2-1.0); WBC,Urine 1 /HPF (0-6)
[2017-12-31] MEDS: SODIUM CHLORIDE 0.9% IV SCH (18:28)
[2017-12-31] MEDS: FLUOROURACIL IV SCH (18:28)
[2017-12-31] MEDS ORDERED: PROMETHAZINE 25 MG TABLET PO PRN (20:11)
[2017-12-31] MEDS: TEMAZEPAM 15 MG CAPSULE PO SCH (21:36)
[2018-01-01] MEDS: DEXAMETHASONE 0.5 MG TABLET PO SCH (08:48)
[2018-01-01] MEDS: LOSARTAN/HCTZ 50-12.5 MG TABLET PO SCH (08:49)
[2018-01-01] MEDS: FLUOROURACIL IV SCH (16:05)
[2018-01-01] MEDS: SODIUM CHLORIDE 0.9% IV SCH (16:05)
[2018-01-01] MEDS: TEMAZEPAM 15 MG CAPSULE PO SCH (20:39)
[2018-01-02] MEDS: DEXAMETHASONE 0.5 MG TABLET PO SCH (08:37)
[2018-01-02] MEDS: LOSARTAN/HCTZ 50-12.5 MG TABLET PO SCH (08:38)
[2018-01-02] MEDS ORDERED: HEPARIN LOCK FLUSH 500 UNIT/5 ML SYRINGE IV PRN (10:08)
[2018-01-02 12:32] VITALS: BP 130/65
== END 2018-01-02 13:30 | disposition home or self-care, planned readmission (81) | DRG 847 ==
LOC: N.4E 09:36
PROVIDERS: ADMIT Specialist; ATTEND Specialist

== ENCOUNTER 2018-01-14 07:00 | Inpatient (IN) ==
[2018-01-14] MEDS ORDERED: DEXAMETHASONE 10 MG/1 ML VIAL IV ONE (12:00)
[2018-01-14] MEDS ORDERED: PALONOSETRON 0.25 MG/5 ML VIAL IV ONE (12:00)
[2018-01-14] MEDS ORDERED: OXALIPLATIN 170 MG in DEXTROSE 5% 250 ML IV ONE (12:00)
[2018-01-14] MEDS ORDERED: LEUCOVORIN INJ 700 MG, LEUCOVORIN INJ 100 MG in DEXTROSE 5% 250 ML IV ONE (12:00)
[2018-01-14] MEDS ORDERED: FLUOROURACIL 800 MG in SYRINGE 1 EACH IV ONE (12:00)
[2018-01-14 12:18] LABS: Eosinophils % 0.6 % (0.00-10.9); Hematocrit 36.5 VOL% (42.0-52.0); Hemoglobin 11.4 GM/DL (14.0-18.0); Immature Granulocytes % 0.5 %; Immature Granulocytes Absolute 0.03 #; Lymphocytes # 1.1 10*3/uL (1.4-4.0); Lymphocytes % 16.9 % (21.2-54.2); Mean Corpuscular HGB Conc 31.2 GM/DL (32-36); Mean Corpuscular Hemoglobin 27 PG (27-34); Mean Corpuscular Volume 86.7 FL (87-102); Mean Platelet Volume 10.6 FL (9.6-12.0); Monocytes # 0.6 10*3/uL (0.11-0.8); Monocytes % 9.4 % (1.7-12.7); Neutrophils # 4.7 10*3/uL (1.4-7.4); Neutrophils % 72.6 % (38.7-73.9); Platelet Count 145 T/CUMM (130-400); Red Blood Count 4.21 MC/CUMM (3.8-5.5); Red Cell Distribution Width 17.7 % (9.3-17.3); White Blood Count 6.5 T/CUMM (4-12)
[2018-01-14 12:52] LABS: Uric Acid 7.2 MG/DL (3.5-7.2)
[2018-01-14 12:57] LABS: Albumin 3.2 G/DL (3.4-5.0); Bilirubin,Total 0.9 MG/DL (0.2-1.0); Calcium 9.3 MG/DL (8.5-10.1); Osmolality,Calculated 276.7 MOS/KG (273-304); Potassium 4.1 MMOL/L (3.5-5.1)
[2018-01-14 15:44] LABS: Apearance,Urine CLEAR (Clear); Bilirubin,Urine Negative (Negative); Blood, Urine Negative (Negative); Glucose,Urine (UA) Negative (Negative); Ketones,Urine Negative (Negative); Nitrite,Urine Negative (Negative); Protein,Urine Negative; RBC,Urine <1 /HPF (0-4); Urine Color Straw (Yellow); Urine Specific Gravity 1.017 (1.001-1.035); Urine Urobilinogen < 2.0 EU/DL (0.2-1.0); WBC,Urine 1 /HPF (0-6)
[2018-01-14] MEDS: SODIUM CHLORIDE 0.9% IV SCH (17:38)
[2018-01-14] MEDS: FLUOROURACIL IV SCH (17:38)
[2018-01-14] MEDS ORDERED: LACTULOSE 20 GM/30 ML UDCUP PO PRN (20:28)
[2018-01-14] MEDS ORDERED: chlorproMAZINE INJ 25 MG in SODIUM CHLORIDE 0.9% 100 ML IV PRN (20:28)
[2018-01-14] MEDS ORDERED: ACETAMINOPHEN 325 MG TABLET PO PRN (20:28)
[2018-01-14] MEDS ORDERED: MAGNESIUM HYDROXIDE SUSP 30 ML UDCUP PO PRN (20:28)
[2018-01-14] MEDS ORDERED: PROMETHAZINE INJ 25 MG in SODIUM CHLORIDE 0.9% 50 ML IV PRN (20:28)
[2018-01-14] MEDS ORDERED: MYLANTA/LIDO VISC 2:1 300 ML BOTTLE SWISH/SWAL PRN (20:28)
[2018-01-14] MEDS ORDERED: chlorproMAZINE INJ 50 MG in SODIUM CHLORIDE 0.9% 100 ML IV PRN (20:28)
[2018-01-14] MEDS ORDERED: MYLANTA/LIDO VISC 2:1 300 ML BOTTLE SWISH/SPIT PRN (20:28)
[2018-01-14] MEDS ORDERED: TEMAZEPAM 7.5 MG CAPSULE PO PRN (20:28)
[2018-01-14] MEDS ORDERED: diphenhydrAMINE CAP 25 MG CAPSULE PO PRN (20:28)
[2018-01-14] MEDS ORDERED: LOPERAMIDE 2 MG CAPSULE PO PRN ×2 (20:28)
[2018-01-14] MEDS ORDERED: ALUMINUM/MAGNES/SIMETH MAX STR 30 ML UDCUP PO PRN (20:28)
[2018-01-14] MEDS ORDERED: guaiFENesin 200 MG/10 ML UDCUP PO PRN (20:28)
[2018-01-14] MEDS ORDERED: ALPRAZolam 0.25 MG TABLET PO PRN (20:28)
[2018-01-14] MEDS ORDERED: traMADol 50 MG TABLET PO PRN (20:28)
[2018-01-14] MEDS ORDERED: chlorproMAZINE 25 MG TABLET PO PRN (20:28)
[2018-01-14] MEDS ORDERED: BENZTROPINE 2 MG/2 ML AMP IV PRN (20:28)
[2018-01-14] MEDS ORDERED: ONDANSETRON 4 MG/2 ML VIAL ONE (20:40)
[2018-01-14] MEDS: ONDANSETRON 4 MG/2 ML VIAL IV PRN (20:53)
[2018-01-15 05:18] LABS: Hematocrit 34.5 VOL% (42.0-52.0); Hemoglobin 10.8 GM/DL (14.0-18.0); Immature Granulocytes % 0.4 %; Immature Granulocytes Absolute 0.03 #; Lymphocytes # 0.4 10*3/uL (1.4-4.0); Lymphocytes % 5.9 % (21.2-54.2); Mean Corpuscular HGB Conc 31.3 GM/DL (32-36); Mean Corpuscular Hemoglobin 27 PG (27-34); Mean Platelet Volume 10.7 FL (9.6-12.0); Monocytes # 0.5 10*3/uL (0.11-0.8); Monocytes % 6.8 % (1.7-12.7); Neutrophils % 86.9 % (38.7-73.9); Platelet Count 138 T/CUMM (130-400); Red Blood Count 4.01 MC/CUMM (3.8-5.5); Red Cell Distribution Width 17.3 % (9.3-17.3); White Blood Count 6.9 T/CUMM (4-12)
[2018-01-15 05:55] LABS: Albumin 2.8 G/DL (3.4-5.0); Bilirubin,Total 1.2 MG/DL (0.2-1.0); Calcium 8.8 MG/DL (8.5-10.1); Osmolality,Calculated 277.7 MOS/KG (273-304); Potassium 4.3 MMOL/L (3.5-5.1); Total Protein 6.4 G/DL (6.4-8.3); Uric Acid 7.4 MG/DL (3.5-7.2)
[2018-01-15 07:25] LABS: Apearance,Urine CLEAR (Clear); Bilirubin,Urine Negative (Negative); Blood, Urine Negative (Negative); Glucose,Urine (UA) Negative (Negative); Ketones,Urine Negative (Negative); Mucus,Urine Occasional /LPF (Occasional); Nitrite,Urine Negative (Negative); Protein,Urine Negative; RBC,Urine 1 /HPF (0-4); Urine Color Yellow (Yellow); Urine Specific Gravity 1.016 (1.001-1.035); Urine Urobilinogen < 2.0 EU/DL (0.2-1.0); WBC,Urine 4 /HPF (0-6)
[2018-01-15] MEDS ORDERED: CETIRIZINE 10 MG TABLET PO PRN (09:29)
[2018-01-15] MEDS ORDERED: PSEUDOEPHEDRINE 30 MG TABLET PO PRN (09:32)
[2018-01-15] MEDS ORDERED: ONDANSETRON 4 MG TABLET PO SCH (11:00)
[2018-01-15] MEDS ORDERED: ONDANSETRON 4 MG TABLET PO PRN (11:30)
[2018-01-15] MEDS: LOSARTAN/HCTZ 50-12.5 MG TABLET PO SCH (11:57)
[2018-01-15] MEDS: DEXAMETHASONE 0.5 MG TABLET PO SCH (11:57)
[2018-01-15] MEDS: ONDANSETRON 4 MG/2 ML VIAL IV PRN (11:58)
[2018-01-15] MEDS: FLUOROURACIL IV SCH (17:02)
[2018-01-15] MEDS: SODIUM CHLORIDE 0.9% IV SCH (17:02)
[2018-01-15] MEDS ORDERED: TEMAZEPAM 15 MG CAPSULE PO PRN (21:00)
[2018-01-16] MEDS: LOSARTAN/HCTZ 50-12.5 MG TABLET PO SCH (08:53)
[2018-01-16] MEDS: DEXAMETHASONE 0.5 MG TABLET PO SCH (08:55)
[2018-01-16 11:18] VITALS: BP 118/74
[2018-01-16] MEDS ORDERED: HEPARIN LOCK FLUSH 500 UNIT/5 ML SYRINGE IV PRN (14:33)
== END 2018-01-16 16:10 | disposition home or self-care (01) | DRG 847 ==
LOC: N.4E 08:12
PROVIDERS: ADMIT Specialist; ATTEND Specialist